=== PATIENT | male | born 1950 | race Caucasian/White ===

== ENCOUNTER → 2018-08-30 07:53 | Outpatient (CLI) | payer OTHER, SELFPAY ==
[2018-08-30 08:38] LABS: Add Manual Diff / Slide Review NO; Basophils Absolute Auto 0 /uL (0-100); Basophils Percent Auto 0.6 % (0-2); Eosinophils Absolute Auto 300 /uL (0-450); Eosinophils Percent Auto 4.5 % (2-4); Hematocrit 41.4 % (41-53); Hemoglobin 14.4 g/dL (13.5-17.5); Lymphocytes Absolute Auto 1600 /uL (1100-4500); Lymphocytes Percent Auto 27.7 % (25-40); Mean Corpuscular HGB Conc 34.9 % (30-36); Mean Corpuscular Hemoglobin 30.9 PG (26-34); Mean Corpuscular Volume 88.5 fL (80-100); Monocytes Absolute Auto 500 /uL (0-900); Monocytes Percent Auto 9.5 % (3-14); Neutrophils Absolute Auto 3300 /uL (1500-7000); Neutrophils Percent Auto 57.7 % (50-75); Platelet Count 213 X10^3/uL (150-400); Red Blood Cell Count 4.67 X10^6/uL (4.5-5.9); Red Cell Distribution Width 13.2 % (11.6-14.8); White Blood Cell Count 5.7 X10^3/uL (4.5-11.0)
[2018-08-30 08:58] LABS: Erythrocyte Sedimentation Rate 3 MM/HR (0-15)
[2018-08-30 09:11] LABS: Alanine Aminotransferase 32 IU/L (21-72); Albumin 4.1 g/dL (3.5-5.0); Albumin Globulin Ratio 1.6 (1.0-2.8); Alkaline Phosphatase 55 U/L (38-126); Aspartate Aminotransferase 29 IU/L (17-59); BUN Creatinine Ratio 13.3 (6-22); Bilirubin Total 0.4 mg/dL (0.2-1.3); Blood Urea Nitrogen 16 mg/dL (9-20); Calcium 8.9 mg/dL (8.4-10.2); Carbon Dioxide 25 mmol/L (22-32); Chloride 104 mmol/L (98-107); Cholesterol 123 mg/dL (140-199); Estimated Glomerular Filt Rate > 60.0 mL/min (>60); Globulin 2.5 g/dL (1.7-4.1); Glucose 104 mg/dL (80-110); HDL Cholesterol 37 mg/dL (40-60); HEMOLYSIS < 15 (0-50); LDL Cholesterol Calculated 71 mg/dL (<100); Potassium 4.3 mmol/L (3.4-5.1); Sodium 138 mmol/L (137-145); Total Protein 6.6 g/dL (6.3-8.2); Triglycerides 76 mg/dL (35-150)
[2018-08-30 09:14] LABS: High Sensitivity CRP - Cardiac 0.4 mg/L (1.0-3.0)
[2018-08-30 09:42] LABS: TSH w/ Reflex to FT4 3.48 uIU/mL (0.47-4.68)
== END ==
PROVIDERS: PCP Internal Medicine; Visit Provider Internal Medicine
DX: I10 Essential (primary) hypertension (principal); I25.10 Atherosclerotic heart disease of native coronary artery without angina pectoris; E78.5 Hyperlipidemia, unspecified
CPT/HCPCS: 36415; 80053; 80061; 84443; 85025; 85651; 86140

== ENCOUNTER → 2020-09-29 07:26 | Outpatient (CLI) | payer MEDICARE, SELFPAY ==
[2020-09-29 08:26] LABS: Alanine Aminotransferase 31 IU/L (<50); Albumin 4.1 g/dL (3.5-5.0); Albumin Globulin Ratio 1.5 (1.0-2.8); Alkaline Phosphatase 56 U/L (38-126); Aspartate Aminotransferase 34 IU/L (17-59); Bilirubin Total 0.3 mg/dL (0.2-1.3); Blood Urea Nitrogen 18 mg/dL (9-20); C-Reactive Protein Quant < 0.5 mg/dL (<1.0); Calcium 9.1 mg/dL (8.4-10.2); Carbon Dioxide 26 mmol/L (22-32); Chloride 105 mmol/L (98-107); Cholesterol 131 mg/dL (140-199); Estimated Glomerular Filt Rate 55.1 mL/min (>60); Globulin 2.8 g/dL (1.7-4.1); Glucose 115 mg/dL (80-110); HDL Cholesterol 39 mg/dL (40-60); HEMOLYSIS < 15 (0-50); LDL Cholesterol Calculated 79 mg/dL (<100); Potassium 4.1 mmol/L (3.4-5.1); Sodium 133 mmol/L (137-145); Total Protein 6.9 g/dL (6.3-8.2); Triglycerides 67 mg/dL (35-150)
[2020-09-29 08:28] LABS: High Sensitivity CRP - Cardiac 0.4 mg/L (1.0-3.0)
[2020-09-29 08:42] LABS: Add Manual Diff / Slide Review NO; Basophils Absolute Auto 100 /uL (0-100); Eosinophils Absolute Auto 300 /uL (0-450); Eosinophils Percent Auto 5.5 % (2-4); Hematocrit 42.9 % (41-53); Hemoglobin 14.7 g/dL (13.5-17.5); Lymphocytes Absolute Auto 1800 /uL (1100-4500); Lymphocytes Percent Auto 31.6 % (25-40); Mean Corpuscular HGB Conc 34.2 % (30-36); Mean Corpuscular Hemoglobin 30.2 PG (26-34); Mean Corpuscular Volume 88.2 fL (80-100); Monocytes Absolute Auto 500 /uL (0-900); Monocytes Percent Auto 8.3 % (3-14); Neutrophils Absolute Auto 3100 /uL (1500-7000); Neutrophils Percent Auto 53.6 % (50-75); Platelet Count 197 X10^3/uL (150-400); Red Blood Cell Count 4.86 X10^6/uL (4.5-5.9); White Blood Cell Count 5.8 X10^3/uL (4.5-11.0)
[2020-09-29 08:54] LABS: TSH w/ Reflex to FT4 5.03 uIU/mL (0.47-4.68)
[2020-09-29 11:24] LABS: Free T4, Direct Thyroxine 0.99 ng/dL (0.78-2.19)
[2020-09-29 16:56] LABS: Creatinine Urine Random 94.8 mg/dL
[2020-09-29 17:04] LABS: Microalbumin Urine Random < 0.6 mg/dL (0-1.6)
== END ==
PROVIDERS: PCP Internal Medicine; Referring Provider Family Medicine; Visit Provider Family Medicine
DX: E66.3 Overweight (principal); E78.5 Hyperlipidemia, unspecified; I10 Essential (primary) hypertension; I25.10 Atherosclerotic heart disease of native coronary artery without angina pectoris; I50.9 Heart failure, unspecified
CPT/HCPCS: 36415; 80053; 80061; 82043; 82570; 84439; 84443; 85025; 86140

== ENCOUNTER → 2020-10-17 09:15 | Outpatient (CLI) | payer MEDICARE, SELFPAY ==
--- NOTE | 2020-10-17 09:16 | DI.RAD.S_ITS ---
PROCEDURE: XR SHOULDER LT MIN 2V INDICATIONS: Left shoulder pain TECHNIQUE: 3 views of the shoulder were acquired. COMPARISON: None. FINDINGS: Bones: No acute fracture. Moderate glenohumeral osteoarthritic change with osteophytosis and joint space narrowing. Mild acromioclavicular degenerative changes. Soft tissues: No suspicious soft tissue calcifications. IMPRESSION: No acute finding. Dictated by: Mario Villar M.D. on 10/17/2020 at 9:35 Approved by: Mario Villar M.D. on 10/17/2020 at 9:43
== END ==
PROVIDERS: PCP Family Medicine; Referring Provider Family Medicine; Visit Provider Family Medicine
DX: M25.512 Pain in left shoulder (principal)
CPT/HCPCS: 73030

== ENCOUNTER 2021-01-27 10:30 | Outpatient (RCR) | payer MEDICARE, SELFPAY ==
--- NOTE | 2020-11-07 16:27 | PT.OIE ---
Current Diagnoses Pain in left shoulder (11/07/20) Past Medical History (Last Reviewed 09/18/20 @ 15:09 by Gokul White MD) Heart failure Low testosterone Overweight (BMI 25.0-29.9) Visit Care Team Role Provider Type Gokul White MD Attending Provider Physician Family Provider Primary Care Provider Referring Provider Specialty: Family Practice Address: [address] [place] [address], [facility] Email: [email or web address] Physical Therapy Initial Evaluation PT-OP-A Visit Information Start: 11/03/20 15:13 Freq: Status: Active Protocol: Document 11/07/20 13:45 MB (Rec: 11/07/20 14:02 MB [id number]) Out-Patient Physical Therapy Visit Information Visit Information Visit Type Initial Evaluation Visit Note Premera BC MCR Pt goes by Bill Visit Start Time 13:45 Visit Stop Time 14:28 Total Visit Minutes 43 Visit Number 1 Evaluation Information Evaluation Date 11/07/20 PT-OP-B Current Condition Start: 11/03/20 15:13 Freq: Status: Active Protocol: Document 11/07/20 13:45 MB (Rec: 11/07/20 14:02 MB [id number]) Current Condition History of Current Condition Onset Date 1 year, history of injury 40 years ago Current Complaints Pain and decreased ROM in left shoulder History of Current Condition Pt reports pain raising his left arm to the side. He hears snapping. He has been inactive through [employer]. He has been working remotely. He was previously very active and hiking. 40 years ago, he was waving his left arm to say goodbye when he slid down the icy steps and hurt the arm. It was and he went to the ED and they reset it. He did not have any PT after that. He had a lot of falling skiing but never had real pain. He is right-handed. If he sleeps with his arm under the pillow, it really hurts. He denies numbness and tingling in his left arm. He has been renovating a rental house and he had to use his arms more to lift. Putting a t-shirt on overhead is difficult and painful. Pt reports 4/10 left shoulder pain with AROM, mostly with abduction. Pt had a [place] and angioplasty and stent in 2000. He had cardiopulmonary rehab at that time. Prior Treatments and Tests Left shoulder x-ray on 10/17/20 was negative for acute findings. It did reveal OA changes, osteophytosis and joint space narrowing, mild AC degenerative changes. Treatment Goals Patient/Caregiver Goals Increase ROM and decrease pain PT-OP-C Subjective Start: 11/03/20 15:13 Freq: Status: Active Protocol: Document 11/07/20 13:45 MB (Rec: 11/07/20 14:02 MB [id number]) OP-PT Subjective Patient Comments Patient Comments See history of current condition Patient Questionnaires Quick Dash- Upper Extremity Quick Dash UE Impairment 1 to 19% Impaired (Score 1-19) PT-OP-J Posture/Palpation/Skin Start: 11/03/20 15:13 Freq: Status: Active Protocol: Document 11/07/20 13:45 MB (Rec: 11/07/20 16:27 MB [id number]) Posture Evaluation Comments Posture Comments Standing posture: increased thoracic kyphosis, Dowager's hump, decreased lumbar lordosis, left shoulder higher than the right, rounded shoulders, left iliac crest higher than the right and right foot externally rotated with possible functional leg length variance. Skin Assessment Other Assessments Skin Assessment Comments Palpation over left coracoid process is hard compared to right PT-OP-K Range of Motion Start: 11/03/20 15:13 Freq: Status: Active Protocol: Document 11/07/20 13:45 MB (Rec: 11/07/20 16:27 MB [id number]) Cervical Spine Range of Motion Cervical Spine Active Testing Position Standing Flexion 40 Extension 30 Rotation Left 50 Rotation Right 60 Shoulder Goniometric Range of Motion Shoulder Left Shoulder ROM WFL No Testing Position Standing Flexion 135 Extension 66 Abduction 92 Internal Rotation Behind Back (text) T11 Comments Supine PROM ER and IR with arm in 90/90: 60 deg, 25 deg Right Shoulder ROM WFL Yes Testing Position Standing Internal Rotation Behind Back (text) T10 PT-OP-M Strength Start: 11/03/20 15:13 Freq: Status: Active Protocol: Document 11/07/20 13:45 MB (Rec: 11/07/20 16:27 MB [id number]) Shoulder Strength Shoulder Manual Muscle Testing Left Comments Deferred MMT d/t painful and reduced AROM Right Flexion 5 Normal Abduction (C5) 5 Normal External Rotation 5 Normal Internal Rotation 5 Normal Elbow/Forearm Strength Elbow and Forearm Manual Muscle Testing Bilateral Flexion (C6) 5 Normal Extension (C7) 5 Normal Pronation 5 Normal Supination 5 Normal Wrist Strength Wrist Manual Muscle Testing Bilateral Flexion (C7) 5 Normal Extension (C6) 5 Normal PT-OP-Q Treatments Start: 11/03/20 15:13 Freq: Status: Active Protocol: Document 11/07/20 13:45 MB (Rec: 11/07/20 16:27 MB [id number]) Self-Care/Home Management Treatment Education Other Education Proper sleeping position with towel roll support at neck, positioning pillows when on right and left sides, log rolling, use of frozen peas, plan to initiate PT for conservative management and possible need for ortho consult and MRI given changes on left shoulder x-ray, limited range and pain PT-OP-T Assessment and Plan Start: 11/03/20 15:13 Freq: Status: Active Protocol: Document 11/07/20 13:45 MB (Rec: 11/07/20 16:27 MB [id number]) Physical Therapy Assessment Rehab Potential Rehabilitation Potential Fair Evaluation Complexity Number of Personal Factors/Comorbidities 1-2 Number of Body Systems Impaired 1-2 Clinical Presentation at Evaluation Evolving Impairments Impairments Activity Tolerance,Balance, Functional Activities, Functional Mobility,Pain, Posture,ROM,Soft Tissue Mobility,Strength Other Impairments Personal factors include changes in left shoulder and pt's recent decreased activity . Body systems affected include musculoskeletal and neuromuscular. His clinical presentation is evolving given degenerative changes in aging . Goals 4 Auto Inspection Specialist Goal (LTG) Pt will perform progressive HEP with I including ROM, postural, strengthening, flexibility, balance and relaxation exercises to improve range, pain and function by 01/08/21. LTG Duration 8 weeks 3 Auto Inspection Specialist Goal (LTG) Pt will present with improved left shoulder flexion and abduction strength to at least 4/5 in available ROM to improve functional strength by 01/08/21. LTG Duration 8 weeks 2 Auto Inspection Specialist Goal (LTG) Pt will present with improved left shoulder AROM to 150 deg flexion and 130 deg abduction to improve functional use of arm by 01/08/21. LTG Duration 8 weeks 1 Longterm Goal (LTG) Pt will report an 85% improvement in left shoulder pain to improve quality of life by 01/08/21. LTG Duration 8 weeks Assessment Summary Assessment Pt is a 70 y/o male presenting with pain and limited range and strength in his left shoulder. He reports that 40 years ago, he had a bad injury falling on icy steps in which he suffered dislocation and had to have his shoulder reduced in the ED. Left shoulder x-ray reveals many changes including OA and osteophytes. PT is concerned that there is anatomical damage that may need to be furthered worked up. He will benefit from PT to initiate postural training for his thoracic and cervical spine, shoulder ROM, manual work and progressive strengthening as tolerates. Will set frequency to 2x/wk for 8 weeks and will refer back to doctor if he does not progress with PT. PT recommends getting an ortho consult and possible MRI set- up. Physical Therapy Plan Frequency and Duration Frequency of Treatment 2x/Week Duration of Treatment 8 weeks Plan of Care Start Date 11/07/20 Plan of Care End Date 01/08/21 Therapeutic Interventions Therapeutic Interventions Balance Training,Canalithic Repositioning,Coordination Training,Gait Training,Home Exercise Program,Joint Mobilizations,Manual Therapy, Neuromuscular Re-education, Patient/Caregiver Education, Self-Care/Home Management, Sensory Integration,Soft Tissue Mobilization,Taping, Therapeutic Activities, Therapeutic Exercises Modalities Cold Pack/Ice Massage,Hot Packs Other Referrals/Consults Referrals/Consults Recommended Ortho consult, left shoulder MRI Next Visit Focus/Plan Next Note Type Treatment Note Next Visit Plan Initiate thoracic mobility, racquet ball STM, AAROM with cane in hook lying
--- NOTE | 2020-11-07 16:27 | PT.OPPOC ---
Physical, Occupational & Speech Therapy At [facility] Current Diagnoses Pain in left shoulder (11/07/20) Visit Care Team Role Provider Type Gokul White MD Attending Provider Physician Family Provider Primary Care Provider Referring Provider Specialty: Family Practice Address: [address] [place] [address], [id number] Email: [email or web address] Plan Of Care PT-OP-T Assessment and Plan Start: 11/03/20 15:13 Freq: Status: Active Protocol: Document 11/07/20 13:45 MB (Rec: 11/07/20 16:27 MB [id number]) Physical Therapy Assessment Rehab Potential Rehabilitation Potential Fair Evaluation Complexity Number of Personal Factors/Comorbidities 1-2 Number of Body Systems Impaired 1-2 Clinical Presentation at Evaluation Evolving Impairments Impairments Activity Tolerance,Balance, Functional Activities, Functional Mobility,Pain, Posture,ROM,Soft Tissue Mobility,Strength Other Impairments Personal factors include changes in left shoulder and pt's recent decreased activity . Body systems affected include musculoskeletal and neuromuscular. His clinical presentation is evolving given degenerative changes in aging . Goals 4 Railroad Hand Goal (LTG) Pt will perform progressive HEP with I including ROM, postural, strengthening, flexibility, balance and relaxation exercises to improve range, pain and function by 01/08/21. LTG Duration 8 weeks 3 Railroad Hand Goal (LTG) Pt will present with improved left shoulder flexion and abduction strength to at least 4/5 in available ROM to improve functional strength by 01/08/21. LTG Duration 8 weeks 2 [facility] Goal (LTG) Pt will present with improved left shoulder AROM to 150 deg flexion and 130 deg abduction to improve functional use of arm by 01/08/21. LTG Duration 8 weeks 1 [facility] Goal (LTG) Pt will report an 85% improvement in left shoulder pain to improve quality of life by 01/08/21. LTG Duration 8 weeks Assessment Summary Assessment Pt is a 70 y/o male presenting with pain and limited range and strength in his left shoulder. He reports that 40 years ago, he had a bad injury falling on icy steps in which he suffered dislocation and had to have his shoulder reduced in the ED. Left shoulder x-ray reveals many changes including OA and osteophytes. PT is concerned that there is anatomical damage that may need to be furthered worked up. He will benefit from PT to initiate postural training for his thoracic and cervical spine, shoulder ROM, manual work and progressive strengthening as tolerates. Will set frequency to 2x/wk for 8 weeks and will refer back to doctor if he does not progress with PT. PT recommends getting an ortho consult and possible MRI set- up. Physical Therapy Plan Frequency and Duration Frequency of Treatment 2x/Week Duration of Treatment 8 weeks Plan of Care Start Date 11/07/20 Plan of Care End Date 01/08/21 Therapeutic Interventions Therapeutic Interventions Balance Training,Canalithic Repositioning,Coordination Training,Gait Training,Home Exercise Program,Joint Mobilizations,Manual Therapy, Neuromuscular Re-education, Patient/Caregiver Education, Self-Care/Home Management, Sensory Integration,Soft Tissue Mobilization,Taping, Therapeutic Activities, Therapeutic Exercises Modalities Cold Pack/Ice Massage,Hot Packs Other Referrals/Consults Referrals/Consults Recommended Ortho consult, left shoulder MRI Next Visit Focus/Plan Next Note Type Treatment Note Next Visit Plan Initiate thoracic mobility, racquet ball STM, AAROM with cane in hook lying Plan of Care Dates Plan of Care Start Date 11/07/20 Plan of Care End Date 01/08/21 Electronically Signed by: Hallie Duarte PT 11/07/20 [id number] Please Sign and Return: I have reviewed this Plan of Care and certify that the skilled therapy services above are required to meet the patient?s needs. Physician Signature Date Printed Name and Credentials Clinical Instructor Signature Printed Name and Credentials
--- NOTE | 2020-11-11 12:56 | PT.OTN ---
Current Diagnoses Pain in left shoulder (11/11/20) Physical Therapy Treatment Note PT-OP-A Visit Information Start: 11/03/20 15:13 Freq: Status: Active Protocol: Document 11/11/20 12:16 MB (Rec: 11/11/20 12:53 MB [id number]) Out-Patient Physical Therapy Visit Information Visit Information Visit Type Treatment Note Visit Note [facility] Pt goes by Bill Visit Start Time 12:16 Visit Stop Time 13:56 Total Visit Minutes 40 Visit Number 2 PT-OP-B Current Condition Start: 11/03/20 15:13 Freq: Status: Active Protocol: Document 11/07/20 13:45 MB (Rec: 11/07/20 14:02 MB [id number]) Current Condition History of Current Condition Onset Date 1 year, history of injury 40 years ago Current Complaints Pain and decreased ROM in left shoulder History of Current Condition Pt reports pain raising his left arm to the side. He hears snapping. He has been inactive through [employer]. He has been working remotely. He was previously very active and hiking. 40 years ago, he was waving his left arm to say goodbye when he slid down the icy steps and hurt the arm. It was and he went to the ED and they reset it. He did not have any PT after that. He had a lot of falling skiing but never had real pain. He is right-handed. If he sleeps with his arm under the pillow, it really hurts. He denies numbness and tingling in his left arm. He has been renovating a rental house and he had to use his arms more to lift. Putting a t-shirt on overhead is difficult and painful. Pt reports 4/10 left shoulder pain with AROM, mostly with abduction. Pt had a [place] and angioplasty and stent in 2000. He had cardiopulmonary rehab at that time. Prior Treatments and Tests Left shoulder x-ray on 10/17/20 was negative for acute findings. It did reveal OA changes, osteophytosis and joint space narrowing, mild AC degenerative changes. Treatment Goals Patient/Caregiver Goals Increase ROM and decrease pain PT-OP-C Subjective Start: 11/03/20 15:13 Freq: Status: Active Protocol: Document 11/11/20 12:16 MB (Rec: 11/11/20 12:53 MB [id number]) OP-PT Subjective Patient Comments Patient Comments Pt states that he has trouble with the sleeping position and will keep working on it. 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 PT-OP-J Posture/Palpation/Skin Start: 11/03/20 15:13 Freq: Status: Active Protocol: Document 11/07/20 13:45 MB (Rec: 11/07/20 16:27 MB [id number]) Posture Evaluation Comments Posture Comments Standing posture: increased thoracic kyphosis, Dowager's hump, decreased lumbar lordosis, left shoulder higher than the right, rounded shoulders, left iliac crest higher than the right and right foot externally rotated with possible functional leg length variance. Skin Assessment Other Assessments Skin Assessment Comments Palpation over left coracoid process is hard compared to right PT-OP-K Range of Motion Start: 11/03/20 15:13 Freq: Status: Active Protocol: Document 11/07/20 13:45 MB (Rec: 11/07/20 16:27 MB [id number]) Cervical Spine Range of Motion Cervical Spine Active Testing Position Standing Flexion 40 Extension 30 Rotation Left 50 Rotation Right 60 Shoulder Goniometric Range of Motion Shoulder Left Shoulder ROM WFL No Testing Position Standing Flexion 135 Extension 66 Abduction 92 Internal Rotation Behind Back (text) T11 Comments Supine PROM ER and IR with arm in 90/90: 60 deg, 25 deg Right Shoulder ROM WFL Yes Testing Position Standing Internal Rotation Behind Back (text) T10 PT-OP-M Strength Start: 11/03/20 15:13 Freq: Status: Active Protocol: Document 11/07/20 13:45 MB (Rec: 11/07/20 16:27 MB [id number]) Shoulder Strength Shoulder Manual Muscle Testing Left Comments Deferred MMT d/t painful and reduced AROM Right Flexion 5 Normal Abduction (C5) 5 Normal External Rotation 5 Normal Internal Rotation 5 Normal Elbow/Forearm Strength Elbow and Forearm Manual Muscle Testing Bilateral Flexion (C6) 5 Normal Extension (C7) 5 Normal Pronation 5 Normal Supination 5 Normal Wrist Strength Wrist Manual Muscle Testing Bilateral Flexion (C7) 5 Normal Extension (C6) 5 Normal PT-OP-Q Treatments Start: 11/03/20 15:13 Freq: Status: Active Protocol: Document 11/11/20 12:16 MB (Rec: 11/11/20 12:53 MB [id number]) Therapeutic Exercises Supine Exercises Cane AROM Supine Exercise Name For left shoulder, using right arm support Side bilateral Equipment Used Cane Comments Flexion and abduction x10 reps Sidelying Exercises Open book with elbows bent and rib breathing Side bilateral Comments Pillow under head, hands behind head, breathing through nose moving ribs Standing Exercises Racquet ball STM Standing Exercise Name STM intrascapular muscles, MWM upper traps and infraspinatus Side bilateral Comments PT ed and pt performs PT-OP-T Assessment and Plan Start: 11/03/20 15:13 Freq: Status: Active Protocol: Document 11/11/20 12:16 MB (Rec: 11/11/20 12:53 MB [id number]) Physical Therapy Assessment Rehab Potential Rehabilitation Potential Fair Evaluation Complexity Number of Personal Factors/Comorbidities 1-2 Number of Body Systems Impaired 1-2 Clinical Presentation at Evaluation Evolving Impairments Impairments Activity Tolerance,Balance, Functional Activities, Functional Mobility,Pain, Posture,ROM,Soft Tissue Mobility,Strength Other Impairments Personal factors include changes in left shoulder and pt's recent decreased activity . Body systems affected include musculoskeletal and neuromuscular. His clinical presentation is evolving given degenerative changes in aging . Goals 4 Shelter Goal (LTG) Pt will perform progressive HEP with I including ROM, postural, strengthening, flexibility, balance and relaxation exercises to improve range, pain and function by 01/08/21. LTG Duration 8 weeks 3 Jewelry Finisher Goal (LTG) Pt will present with improved left shoulder flexion and abduction strength to at least 4/5 in available ROM to improve functional strength by 01/08/21. LTG Duration 8 weeks 2 Jewelry Finisher Goal (LTG) Pt will present with improved left shoulder AROM to 150 deg flexion and 130 deg abduction to improve functional use of arm by 01/08/21. LTG Duration 8 weeks 1 Jewelry Finisher Goal (LTG) Pt will report an 85% improvement in left shoulder pain to improve quality of life by 01/08/21. LTG Duration 8 weeks Assessment Summary Assessment Initiated thoracic mobility and cane exercises today as well as racquet ball massage. Con't progression in hook lying. Physical Therapy Plan Frequency and Duration Frequency of Treatment 2x/Week Duration of Treatment 8 weeks Plan of Care Start Date 11/07/20 Plan of Care End Date 01/08/21 Therapeutic Interventions Therapeutic Interventions Balance Training,Canalithic Repositioning,Coordination Training,Gait Training,Home Exercise Program,Joint Mobilizations,Manual Therapy, Neuromuscular Re-education, Patient/Caregiver Education, Self-Care/Home Management, Sensory Integration,Soft Tissue Mobilization,Taping, Therapeutic Activities, Therapeutic Exercises Modalities Cold Pack/Ice Massage,Hot Packs Other Referrals/Consults Referrals/Consults Recommended Ortho consult, left shoulder MRI Next Visit Focus/Plan Next Note Type Treatment Note Next Visit Plan Initiate [facility] Protocol mobilizations to tolerance, assessing needs; progress thoracic mobility and shoulder strengthening over pool noodle, monitoring responses
--- NOTE | 2020-11-14 15:33 | PT.OTN ---
Current Diagnoses Pain in left shoulder (11/14/20) Physical Therapy Treatment Note PT-OP-A Visit Information Start: 11/03/20 15:13 Freq: Status: Active Protocol: Document 11/14/20 13:51 MB (Rec: 11/14/20 14:33 MB [id number]) Out-Patient Physical Therapy Visit Information Visit Information Visit Type Treatment Note Visit Note [facility] Visit Start Time 13:51 Visit Stop Time 14:30 Total Visit Minutes 39 Visit Number 3 PT-OP-B Current Condition Start: 11/03/20 15:13 Freq: Status: Active Protocol: Document 11/07/20 13:45 MB (Rec: 11/07/20 14:02 MB [id number]) Current Condition History of Current Condition Onset Date 1 year, history of injury 40 years ago Current Complaints Pain and decreased ROM in left shoulder History of Current Condition Pt reports pain raising his left arm to the side. He hears snapping. He has been inactive through [employer]. He has been working remotely. He was previously very active and hiking. 40 years ago, he was waving his left arm to say goodbye when he slid down the icy steps and hurt the arm. It was and he went to the ED and they reset it. He did not have any PT after that. He had a lot of falling skiing but never had real pain. He is right-handed. If he sleeps with his arm under the pillow, it really hurts. He denies numbness and tingling in his left arm. He has been renovating a rental house and he had to use his arms more to lift. Putting a t-shirt on overhead is difficult and painful. Pt reports 4/10 left shoulder pain with AROM, mostly with abduction. Pt had a [place] and angioplasty and stent in 2000. He had cardiopulmonary rehab at that time. Prior Treatments and Tests Left shoulder x-ray on 10/17/20 was negative for acute findings. It did reveal OA changes, osteophytosis and joint space narrowing, mild AC degenerative changes. Treatment Goals Patient/Caregiver Goals Increase ROM and decrease pain PT-OP-C Subjective Start: 11/03/20 15:13 Freq: Status: Active Protocol: Document 11/14/20 13:51 MB (Rec: 11/14/20 14:33 MB [id number]) OP-PT Subjective Patient Comments Patient Comments Pt states that his arm is feeling better though he is not doing anything. He wonders what the crunch crunch crunch is. PT-OP-J Posture/Palpation/Skin Start: 11/03/20 15:13 Freq: Status: Active Protocol: Document 11/07/20 13:45 MB (Rec: 11/07/20 16:27 MB [id number]) Posture Evaluation Comments Posture Comments Standing posture: increased thoracic kyphosis, Dowager's hump, decreased lumbar lordosis, left shoulder higher than the right, rounded shoulders, left iliac crest higher than the right and right foot externally rotated with possible functional leg length variance. Skin Assessment Other Assessments Skin Assessment Comments Palpation over left coracoid process is hard compared to right PT-OP-K Range of Motion Start: 11/03/20 15:13 Freq: Status: Active Protocol: Document 11/07/20 13:45 MB (Rec: 11/07/20 16:27 MB [id number]) Cervical Spine Range of Motion Cervical Spine Active Testing Position Standing Flexion 40 Extension 30 Rotation Left 50 Rotation Right 60 Shoulder Goniometric Range of Motion Shoulder Left Shoulder ROM WFL No Testing Position Standing Flexion 135 Extension 66 Abduction 92 Internal Rotation Behind Back (text) T11 Comments Supine PROM ER and IR with arm in 90/90: 60 deg, 25 deg Right Shoulder ROM WFL Yes Testing Position Standing Internal Rotation Behind Back (text) T10 PT-OP-M Strength Start: 11/03/20 15:13 Freq: Status: Active Protocol: Document 11/07/20 13:45 MB (Rec: 11/07/20 16:27 MB [id number]) Shoulder Strength Shoulder Manual Muscle Testing Left Comments Deferred MMT d/t painful and reduced AROM Right Flexion 5 Normal Abduction (C5) 5 Normal External Rotation 5 Normal Internal Rotation 5 Normal Elbow/Forearm Strength Elbow and Forearm Manual Muscle Testing Bilateral Flexion (C6) 5 Normal Extension (C7) 5 Normal Pronation 5 Normal Supination 5 Normal Wrist Strength Wrist Manual Muscle Testing Bilateral Flexion (C7) 5 Normal Extension (C6) 5 Normal PT-OP-Q Treatments Start: 11/03/20 15:13 Freq: Status: Active Protocol: Document 11/14/20 13:51 MB (Rec: 11/14/20 15:31 MB [id number]) Manual Therapy Treatment Other Other Manual Treatments Left shoulder [place] Protocol and mobs at joint line grade II-III with shoulder in ER and IR in prone (PA mobs) and in ER in supine with AP mobs and pt responds well to treatment, posterior capsule stretch and mobs PT-OP-T Assessment and Plan Start: 11/03/20 15:13 Freq: Status: Active Protocol: Document 11/14/20 13:51 MB (Rec: 11/14/20 14:33 MB [id number]) Physical Therapy Assessment Rehab Potential Rehabilitation Potential Fair Evaluation Complexity Number of Personal Factors/Comorbidities 1-2 Number of Body Systems Impaired 1-2 Clinical Presentation at Evaluation Evolving Impairments Impairments Activity Tolerance,Balance, Functional Activities, Functional Mobility,Pain, Posture,ROM,Soft Tissue Mobility,Strength Other Impairments Personal factors include changes in left shoulder and pt's recent decreased activity . Body systems affected include musculoskeletal and neuromuscular. His clinical presentation is evolving given degenerative changes in aging . Goals 4 Char Dust Cleaner And Salvager Goal (LTG) Pt will perform progressive HEP with I including ROM, postural, strengthening, flexibility, balance and relaxation exercises to improve range, pain and function by 01/08/21. LTG Duration 8 weeks 3 Char Dust Cleaner And Salvager Goal (LTG) Pt will present with improved left shoulder flexion and abduction strength to at least 4/5 in available ROM to improve functional strength by 01/08/21. LTG Duration 8 weeks 2 Char Dust Cleaner And Salvager Goal (LTG) Pt will present with improved left shoulder AROM to 150 deg flexion and 130 deg abduction to improve functional use of arm by 01/08/21. LTG Duration 8 weeks 1 Char Dust Cleaner And Salvager Goal (LTG) Pt will report an 85% improvement in left shoulder pain to improve quality of life by 01/08/21. LTG Duration 8 weeks Assessment Summary Assessment Pt reports that his left shoulder feels better after manual work today. Will con't this and progress exercises in future treatments. Physical Therapy Plan Frequency and Duration Frequency of Treatment 2x/Week Duration of Treatment 8 weeks Plan of Care Start Date 11/07/20 Plan of Care End Date 01/08/21 Therapeutic Interventions Therapeutic Interventions Balance Training,Canalithic Repositioning,Coordination Training,Gait Training,Home Exercise Program,Joint Mobilizations,Manual Therapy, Neuromuscular Re-education, Patient/Caregiver Education, Self-Care/Home Management, Sensory Integration,Soft Tissue Mobilization,Taping, Therapeutic Activities, Therapeutic Exercises Modalities Cold Pack/Ice Massage,Hot Packs Other Referrals/Consults Referrals/Consults Recommended Ortho consult, left shoulder MRI Next Visit Focus/Plan Next Note Type Treatment Note Next Visit Plan [place] Protocol, progress thoracic mobility and shoulder strengthening over pool noodle
--- NOTE | 2020-11-19 15:18 | PT.OTN ---
Current Diagnoses Pain in left shoulder (11/19/20) Physical Therapy Treatment Note PT-OP-A Visit Information Start: 11/03/20 15:13 Freq: Status: Active Protocol: Document 11/19/20 13:01 (Rec: 11/19/20 15:17 [id number]) Out-Patient Physical Therapy Visit Information Visit Information Visit Type Treatment Note Visit Note [facility] Visit Start Time 13:04 Visit Stop Time 13:45 Total Visit Minutes 41 Visit Number 4 PT-OP-B Current Condition Start: 11/03/20 15:13 Freq: Status: Active Protocol: Document 11/07/20 13:45 MB (Rec: 11/07/20 14:02 MB [id number]) Current Condition History of Current Condition Onset Date 1 year, history of injury 40 years ago Current Complaints Pain and decreased ROM in left shoulder History of Current Condition Pt reports pain raising his left arm to the side. He hears snapping. He has been inactive through [employer]. He has been working remotely. He was previously very active and hiking. 40 years ago, he was waving his left arm to say goodbye when he slid down the icy steps and hurt the arm. It was and he went to the ED and they reset it. He did not have any PT after that. He had a lot of falling skiing but never had real pain. He is right-handed. If he sleeps with his arm under the pillow, it really hurts. He denies numbness and tingling in his left arm. He has been renovating a rental house and he had to use his arms more to lift. Putting a t-shirt on overhead is difficult and painful. Pt reports 4/10 left shoulder pain with AROM, mostly with abduction. Pt had a [place] and angioplasty and stent in 2000. He had cardiopulmonary rehab at that time. Prior Treatments and Tests Left shoulder x-ray on 10/17/20 was negative for acute findings. It did reveal OA changes, osteophytosis and joint space narrowing, mild AC degenerative changes. Treatment Goals Patient/Caregiver Goals Increase ROM and decrease pain PT-OP-C Subjective Start: 11/03/20 15:13 Freq: Status: Active Protocol: Document 11/19/20 13:01 HH (Rec: 11/19/20 15:17 [id number]) OP-PT Subjective Patient Comments Patient Comments I could reach overhead now with abduction and less pain. Patient Reported Progress Improving PT-OP-J Posture/Palpation/Skin Start: 11/03/20 15:13 Freq: Status: Active Protocol: Document 11/07/20 13:45 MB (Rec: 11/07/20 16:27 MB [id number]) Posture Evaluation Comments Posture Comments Standing posture: increased thoracic kyphosis, Dowager's hump, decreased lumbar lordosis, left shoulder higher than the right, rounded shoulders, left iliac crest higher than the right and right foot externally rotated with possible functional leg length variance. Skin Assessment Other Assessments Skin Assessment Comments Palpation over left coracoid process is hard compared to right PT-OP-K Range of Motion Start: 11/03/20 15:13 Freq: Status: Active Protocol: Document 11/07/20 13:45 MB (Rec: 11/07/20 16:27 MB [id number]) Cervical Spine Range of Motion Cervical Spine Active Testing Position Standing Flexion 40 Extension 30 Rotation Left 50 Rotation Right 60 Shoulder Goniometric Range of Motion Shoulder Left Shoulder ROM WFL No Testing Position Standing Flexion 135 Extension 66 Abduction 92 Internal Rotation Behind Back (text) T11 Comments Supine PROM ER and IR with arm in 90/90: 60 deg, 25 deg Right Shoulder ROM WFL Yes Testing Position Standing Internal Rotation Behind Back (text) T10 PT-OP-M Strength Start: 11/03/20 15:13 Freq: Status: Active Protocol: Document 11/07/20 13:45 MB (Rec: 11/07/20 16:27 MB [id number]) Shoulder Strength Shoulder Manual Muscle Testing Left Comments Deferred MMT d/t painful and reduced AROM Right Flexion 5 Normal Abduction (C5) 5 Normal External Rotation 5 Normal Internal Rotation 5 Normal Elbow/Forearm Strength Elbow and Forearm Manual Muscle Testing Bilateral Flexion (C6) 5 Normal Extension (C7) 5 Normal Pronation 5 Normal Supination 5 Normal Wrist Strength Wrist Manual Muscle Testing Bilateral Flexion (C7) 5 Normal Extension (C6) 5 Normal PT-OP-Q Treatments Start: 11/03/20 15:13 Freq: Status: Active Protocol: Document 11/19/20 13:01 HH (Rec: 11/19/20 15:17 [id number]) Therapeutic Exercises Supine Exercises Cane AROM Supine Exercise Name For left shoulder, using right arm support Side bilateral Equipment Used Cane Comments Flexion and abduction x10 reps Sidelying Exercises Open book with elbows bent and rib breathing Side bilateral Comments Pillow under head, hands behind head, breathing through nose moving ribs Sitting Exercises overhead shirin Sitting Exercise Name flexion, abduction Side left Comments pt able to reach close to full range but slowly Standing Exercises scap retraction Standing Exercise Name postural correction Side bilateral Comments for HEP Racquet ball STM Standing Exercise Name STM intrascapular muscles, MWM upper traps and infraspinatus Side bilateral Comments review with pt today to place the ball lower. Manual Therapy Treatment Soft Tissue Mobilization RTC Body Location teres minor and major Mobilization Type Myofascial Release,Sustained Pressure,Trigger Point Release Intensity/Depth Moderate Body Position Sidelying Comments significant tenderness noted with radiating pain to front of the shoulder pecs Mobilization Type Myofascial Release Intensity/Depth Moderate Body Position Supine Joint Mobilizations L GHJ Direction inferior, posterior and anterior Grade III Body Position Supine PT-OP-T Assessment and Plan Start: 11/03/20 15:13 Freq: Status: Active Protocol: Document 11/19/20 13:01 (Rec: 11/19/20 15:17 [id number]) Physical Therapy Assessment Goals 4 Ends Breakage Clerk Goal (LTG) Pt will perform progressive HEP with I including ROM, postural, strengthening, flexibility, balance and relaxation exercises to improve range, pain and function by 01/08/21. LTG Duration 8 weeks 3 Ends Breakage Clerk Goal (LTG) Pt will present with improved left shoulder flexion and abduction strength to at least 4/5 in available ROM to improve functional strength by 01/08/21. LTG Duration 8 weeks 2 Ends Breakage Clerk Goal (LTG) Pt will present with improved left shoulder AROM to 150 deg flexion and 130 deg abduction to improve functional use of arm by 01/08/21. LTG Duration 8 weeks 1 Ends Breakage Clerk Goal (LTG) Pt will report an 85% improvement in left shoulder pain to improve quality of life by 01/08/21. LTG Duration 8 weeks Assessment Summary Assessment pt shows good progress with improved pain and active abduction. Pt does have lots of crepitis especially during ER. Spent time educated pt on using overhead shirin for AAROM, and postural correction to reduce pressure at anterior GHJ. Physical Therapy Plan Frequency and Duration Frequency of Treatment 2x/Week Duration of Treatment 8 weeks Plan of Care Start Date 11/07/20 Plan of Care End Date 01/08/21 Therapeutic Interventions Therapeutic Interventions Balance Training,Canalithic Repositioning,Coordination Training,Gait Training,Home Exercise Program,Joint Mobilizations,Manual Therapy, Neuromuscular Re-education, Patient/Caregiver Education, Self-Care/Home Management, Sensory Integration,Soft Tissue Mobilization,Taping, Therapeutic Activities, Therapeutic Exercises Modalities Cold Pack/Ice Massage,Hot Packs Other Referrals/Consults Referrals/Consults Recommended Ortho consult, left shoulder MRI Next Visit Focus/Plan Next Note Type Treatment Note Next Visit Plan [place] Protocol, progress thoracic mobility and shoulder strengthening over pool noodle
--- NOTE | 2020-11-24 15:10 | PT.OTN ---
Current Diagnoses Pain in left shoulder (11/24/20) Physical Therapy Treatment Note PT-OP-A Visit Information Start: 11/03/20 15:13 Freq: Status: Active Protocol: Document 11/24/20 14:32 MB (Rec: 11/24/20 15:01 MB [id number]) Out-Patient Physical Therapy Visit Information Visit Information Visit Type Treatment Note Visit Note [facility] Visit Start Time 14:32 Visit Stop Time 15:10 Total Visit Minutes 38 Visit Number 5 PT-OP-B Current Condition Start: 11/03/20 15:13 Freq: Status: Active Protocol: Document 11/07/20 13:45 MB (Rec: 11/07/20 14:02 MB [id number]) Current Condition History of Current Condition Onset Date 1 year, history of injury 40 years ago Current Complaints Pain and decreased ROM in left shoulder History of Current Condition Pt reports pain raising his left arm to the side. He hears snapping. He has been inactive through [employer]. He has been working remotely. He was previously very active and hiking. 40 years ago, he was waving his left arm to say goodbye when he slid down the icy steps and hurt the arm. It was and he went to the ED and they reset it. He did not have any PT after that. He had a lot of falling skiing but never had real pain. He is right-handed. If he sleeps with his arm under the pillow, it really hurts. He denies numbness and tingling in his left arm. He has been renovating a rental house and he had to use his arms more to lift. Putting a t-shirt on overhead is difficult and painful. Pt reports 4/10 left shoulder pain with AROM, mostly with abduction. Pt had a [place] and angioplasty and stent in 2000. He had cardiopulmonary rehab at that time. Prior Treatments and Tests Left shoulder x-ray on 10/17/20 was negative for acute findings. It did reveal OA changes, osteophytosis and joint space narrowing, mild AC degenerative changes. Treatment Goals Patient/Caregiver Goals Increase ROM and decrease pain PT-OP-C Subjective Start: 11/03/20 15:13 Freq: Status: Active Protocol: Document 11/24/20 14:32 MB (Rec: 11/24/20 15:01 MB [id number]) OP-PT Subjective Patient Comments Patient Comments Pt states that the shirin works well. PT-OP-J Posture/Palpation/Skin Start: 11/03/20 15:13 Freq: Status: Active Protocol: Document 11/07/20 13:45 MB (Rec: 11/07/20 16:27 MB [id number]) Posture Evaluation Comments Posture Comments Standing posture: increased thoracic kyphosis, Dowager's hump, decreased lumbar lordosis, left shoulder higher than the right, rounded shoulders, left iliac crest higher than the right and right foot externally rotated with possible functional leg length variance. Skin Assessment Other Assessments Skin Assessment Comments Palpation over left coracoid process is hard compared to right PT-OP-K Range of Motion Start: 11/03/20 15:13 Freq: Status: Active Protocol: Document 11/07/20 13:45 MB (Rec: 11/07/20 16:27 MB [id number]) Cervical Spine Range of Motion Cervical Spine Active Testing Position Standing Flexion 40 Extension 30 Rotation Left 50 Rotation Right 60 Shoulder Goniometric Range of Motion Shoulder Left Shoulder ROM WFL No Testing Position Standing Flexion 135 Extension 66 Abduction 92 Internal Rotation Behind Back (text) T11 Comments Supine PROM ER and IR with arm in 90/90: 60 deg, 25 deg Right Shoulder ROM WFL Yes Testing Position Standing Internal Rotation Behind Back (text) T10 PT-OP-M Strength Start: 11/03/20 15:13 Freq: Status: Active Protocol: Document 11/07/20 13:45 MB (Rec: 11/07/20 16:27 MB [id number]) Shoulder Strength Shoulder Manual Muscle Testing Left Comments Deferred MMT d/t painful and reduced AROM Right Flexion 5 Normal Abduction (C5) 5 Normal External Rotation 5 Normal Internal Rotation 5 Normal Elbow/Forearm Strength Elbow and Forearm Manual Muscle Testing Bilateral Flexion (C6) 5 Normal Extension (C7) 5 Normal Pronation 5 Normal Supination 5 Normal Wrist Strength Wrist Manual Muscle Testing Bilateral Flexion (C7) 5 Normal Extension (C6) 5 Normal PT-OP-Q Treatments Start: 11/03/20 15:13 Freq: Status: Active Protocol: Document 11/24/20 14:32 MB (Rec: 11/24/20 15:01 MB [id number]) Cardio Equipment Upper Body Ergometer (UBE) Duration (Minutes) 10 Other 1' forward and 1' backwards Manual Therapy Treatment Other Other Manual Treatments Left shoulder [place] Protocol, joint mobs grade III -IV with left shoulder in ER and IR in prone (PA mobs) and Ap mobs with left shoulder in ER in supine. MWM left pects with PT performing TrP pressure and pt performing AAROM left shoulder ER at the same time. PT-OP-T Assessment and Plan Start: 11/03/20 15:13 Freq: Status: Active Protocol: Document 11/24/20 14:32 MB (Rec: 11/24/20 15:01 MB [id number]) Physical Therapy Assessment Rehab Potential Rehabilitation Potential Fair Evaluation Complexity Number of Personal Factors/Comorbidities 1-2 Number of Body Systems Impaired 1-2 Clinical Presentation at Evaluation Evolving Impairments Impairments Activity Tolerance,Balance, Functional Activities, Functional Mobility,Pain, Posture,ROM,Soft Tissue Mobility,Strength Other Impairments Personal factors include changes in left shoulder and pt's recent decreased activity . Body systems affected include musculoskeletal and neuromuscular. His clinical presentation is evolving given degenerative changes in aging . Goals 4 Residential Goal (LTG) Pt will perform progressive HEP with I including ROM, postural, strengthening, flexibility, balance and relaxation exercises to improve range, pain and function by 01/08/21. LTG Duration 8 weeks 3 Respite Care Provider Goal (LTG) Pt will present with improved left shoulder flexion and abduction strength to at least 4/5 in available ROM to improve functional strength by 01/08/21. LTG Duration 8 weeks 2 Respite Care Provider Goal (LTG) Pt will present with improved left shoulder AROM to 150 deg flexion and 130 deg abduction to improve functional use of arm by 01/08/21. LTG Duration 8 weeks 1 Respite Care Provider Goal (LTG) Pt will report an 85% improvement in left shoulder pain to improve quality of life by 01/08/21. LTG Duration 8 weeks Assessment Summary Assessment Pt likes the shirin. He has not been performing open book or other range/rib mobility exercises and will get back to them. AROM left shoulder flexion and abduction is 90% of right in standing after [place] today and will con't . Progressed strengthening via the upright bike which is a safe closed pack exercise to initiate strengthening. Progress pect stretching with thoracic extension over pool noodle in future treatments. Physical Therapy Plan Frequency and Duration Frequency of Treatment 2x/Week Duration of Treatment 8 weeks Plan of Care Start Date 11/07/20 Plan of Care End Date 01/08/21 Therapeutic Interventions Therapeutic Interventions Balance Training,Canalithic Repositioning,Coordination Training,Gait Training,Home Exercise Program,Joint Mobilizations,Manual Therapy, Neuromuscular Re-education, Patient/Caregiver Education, Self-Care/Home Management, Sensory Integration,Soft Tissue Mobilization,Taping, Therapeutic Activities, Therapeutic Exercises Modalities Cold Pack/Ice Massage,Hot Packs Other Referrals/Consults Referrals/Consults Recommended Ortho consult, left shoulder MRI Next Visit Focus/Plan Next Note Type Treatment Note Next Visit Plan [place] Protocol, progress pect stretch, thoracic mobility and shoulder strengthening lying vertically over pool noodle or progress as secondary PT, [place], feels appropriate (he will see pt next two visits)
--- NOTE | 2020-11-28 10:32 | PT.OTN ---
Current Diagnoses Pain in left shoulder (11/28/20) Physical Therapy Treatment Note PT-OP-A Visit Information Start: 11/03/20 15:13 Freq: Status: Active Protocol: Document 11/28/20 09:48 HH (Rec: 11/28/20 10:31 HH [id number]) Out-Patient Physical Therapy Visit Information Visit Information Visit Type Treatment Note Visit Note Premera BC MCR 10/25 before KX modifier Visit Start Time 09:48 Visit Stop Time 10:30 Total Visit Minutes 42 Visit Number 6 PT-OP-B Current Condition Start: 11/03/20 15:13 Freq: Status: Active Protocol: Document 11/07/20 13:45 MB (Rec: 11/07/20 14:02 MB [id number]) Current Condition History of Current Condition Onset Date 1 year, history of injury 40 years ago Current Complaints Pain and decreased ROM in left shoulder History of Current Condition Pt reports pain raising his left arm to the side. He hears snapping. He has been inactive through [employer]. He has been working remotely. He was previously very active and hiking. 40 years ago, he was waving his left arm to say goodbye when he slid down the icy steps and hurt the arm. It was and he went to the ED and they reset it. He did not have any PT after that. He had a lot of falling skiing but never had real pain. He is right-handed. If he sleeps with his arm under the pillow, it really hurts. He denies numbness and tingling in his left arm. He has been renovating a rental house and he had to use his arms more to lift. Putting a t-shirt on overhead is difficult and painful. Pt reports 4/10 left shoulder pain with AROM, mostly with abduction. Pt had a OK and angioplasty and stent in 2000. He had cardiopulmonary rehab at that time. Prior Treatments and Tests Left shoulder x-ray on 10/17/20 was negative for acute findings. It did reveal OA changes, osteophytosis and joint space narrowing, mild AC degenerative changes. Treatment Goals Patient/Caregiver Goals Increase ROM and decrease pain PT-OP-C Subjective Start: 11/03/20 15:13 Freq: Status: Active Protocol: Document 11/28/20 09:48 HH (Rec: 11/28/20 10:31 [id number]) OP-PT Subjective Patient Comments Patient Comments I felt a lot easier to a bduct my arm without hurting too much. Patient Reported Progress Improving PT-OP-J Posture/Palpation/Skin Start: 11/03/20 15:13 Freq: Status: Active Protocol: Document 11/07/20 13:45 MB (Rec: 11/07/20 16:27 MB [id number]) Posture Evaluation Comments Posture Comments Standing posture: increased thoracic kyphosis, Dowager's hump, decreased lumbar lordosis, left shoulder higher than the right, rounded shoulders, left iliac crest higher than the right and right foot externally rotated with possible functional leg length variance. Skin Assessment Other Assessments Skin Assessment Comments Palpation over left coracoid process is hard compared to right PT-OP-K Range of Motion Start: 11/03/20 15:13 Freq: Status: Active Protocol: Document 11/07/20 13:45 MB (Rec: 11/07/20 16:27 MB [id number]) Cervical Spine Range of Motion Cervical Spine Active Testing Position Standing Flexion 40 Extension 30 Rotation Left 50 Rotation Right 60 Shoulder Goniometric Range of Motion Shoulder Left Shoulder ROM WFL No Testing Position Standing Flexion 135 Extension 66 Abduction 92 Internal Rotation Behind Back (text) T11 Comments Supine PROM ER and IR with arm in 90/90: 60 deg, 25 deg Right Shoulder ROM WFL Yes Testing Position Standing Internal Rotation Behind Back (text) T10 PT-OP-M Strength Start: 11/03/20 15:13 Freq: Status: Active Protocol: Document 11/07/20 13:45 MB (Rec: 11/07/20 16:27 MB [id number]) Shoulder Strength Shoulder Manual Muscle Testing Left Comments Deferred MMT d/t painful and reduced AROM Right Flexion 5 Normal Abduction (C5) 5 Normal External Rotation 5 Normal Internal Rotation 5 Normal Elbow/Forearm Strength Elbow and Forearm Manual Muscle Testing Bilateral Flexion (C6) 5 Normal Extension (C7) 5 Normal Pronation 5 Normal Supination 5 Normal Wrist Strength Wrist Manual Muscle Testing Bilateral Flexion (C7) 5 Normal Extension (C6) 5 Normal PT-OP-Q Treatments Start: 11/03/20 15:13 Freq: Status: Active Protocol: Document 11/28/20 09:48 HH (Rec: 11/28/20 10:31 HH [id number]) Therapeutic Exercises Sidelying Exercises Open book with elbows bent and rib breathing Side bilateral Comments Pillow under head, hands behind head, breathing through nose moving ribs Sitting Exercises overhead shirin Sitting Exercise Name flexion, abduction Side left Reps/Minutes 6 mins Comments pt able to reach close to full range but slowly Standing Exercises shoulder ER Side left Reps/Minutes 2 mins Comments cues on preventing trunk rotation Manual Therapy Treatment Soft Tissue Mobilization RTC Body Location teres minor and major Mobilization Type Myofascial Release,Sustained Pressure,Trigger Point Release Intensity/Depth Moderate Body Position Sidelying Comments significant tenderness noted with radiating pain to front of the shoulder pecs Mobilization Type Myofascial Release Intensity/Depth Moderate Body Position Supine Joint Mobilizations L GHJ Direction inferior, posterior and anterior Grade III Body Position Supine PT-OP-T Assessment and Plan Start: 11/03/20 15:13 Freq: Status: Active Protocol: Document 11/28/20 09:48 (Rec: 11/28/20 10:31 [id number]) Physical Therapy Assessment Goals 4 Sales Support Administrator Goal (LTG) Pt will perform progressive HEP with I including ROM, postural, strengthening, flexibility, balance and relaxation exercises to improve range, pain and function by 01/08/21. LTG Duration 8 weeks 3 Snf Goal (LTG) Pt will present with improved left shoulder flexion and abduction strength to at least 4/5 in available ROM to improve functional strength by 01/08/21. LTG Duration 8 weeks 2 Snf Goal (LTG) Pt will present with improved left shoulder AROM to 150 deg flexion and 130 deg abduction to improve functional use of arm by 01/08/21. LTG Duration 8 weeks 1 Snf Goal (LTG) Pt will report an 85% improvement in left shoulder pain to improve quality of life by 01/08/21. LTG Duration 8 weeks Assessment Summary Assessment pt shows very good progress so far with improved shoulder abd and ER. I also noticed his crepitus is significantly less than last week. This session focused mostly on manual therapy and added shoulder ER stretch. Physical Therapy Plan Frequency and Duration Frequency of Treatment 2x/Week Duration of Treatment 8 weeks Plan of Care Start Date 11/07/20 Plan of Care End Date 01/08/21 Therapeutic Interventions Therapeutic Interventions Balance Training,Canalithic Repositioning,Coordination Training,Gait Training,Home Exercise Program,Joint Mobilizations,Manual Therapy, Neuromuscular Re-education, Patient/Caregiver Education, Self-Care/Home Management, Sensory Integration,Soft Tissue Mobilization,Taping, Therapeutic Activities, Therapeutic Exercises Modalities Cold Pack/Ice Massage,Hot Packs Other Referrals/Consults Referrals/Consults Recommended Ortho consult, left shoulder MRI Next Visit Focus/Plan Next Note Type Treatment Note Next Visit Plan [place] Protocol, progress pect stretch, thoracic mobility and shoulder strengthening lying vertically over pool noodle or progress as secondary PT, Colton, feels appropriate (he will see pt next two visits)
--- NOTE | 2020-12-03 11:17 | PT.OTN ---
Current Diagnoses Pain in left shoulder (12/03/20) Physical Therapy Treatment Note PT-OP-A Visit Information Start: 11/03/20 15:13 Freq: Status: Active Protocol: Document 12/03/20 10:33 HH (Rec: 12/03/20 11:17 HH [id number]) Out-Patient Physical Therapy Visit Information Visit Information Visit Type Treatment Note Visit Note Premera BC MCR 11/24 before KX modifier Visit Start Time 10:35 Visit Stop Time 11:15 Total Visit Minutes 40 Visit Number 7 PT-OP-B Current Condition Start: 11/03/20 15:13 Freq: Status: Active Protocol: Document 11/07/20 13:45 MB (Rec: 11/07/20 14:02 MB [id number]) Current Condition History of Current Condition Onset Date 1 year, history of injury 40 years ago Current Complaints Pain and decreased ROM in left shoulder History of Current Condition Pt reports pain raising his left arm to the side. He hears snapping. He has been inactive through [employer]. He has been working remotely. He was previously very active and hiking. 40 years ago, he was waving his left arm to say goodbye when he slid down the icy steps and hurt the arm. It was and he went to the ED and they reset it. He did not have any PT after that. He had a lot of falling skiing but never had real pain. He is right-handed. If he sleeps with his arm under the pillow, it really hurts. He denies numbness and tingling in his left arm. He has been renovating a rental house and he had to use his arms more to lift. Putting a t-shirt on overhead is difficult and painful. Pt reports 4/10 left shoulder pain with AROM, mostly with abduction. Pt had a [place] and angioplasty and stent in 2000. He had cardiopulmonary rehab at that time. Prior Treatments and Tests Left shoulder x-ray on 10/17/20 was negative for acute findings. It did reveal OA changes, osteophytosis and joint space narrowing, mild AC degenerative changes. Treatment Goals Patient/Caregiver Goals Increase ROM and decrease pain PT-OP-C Subjective Start: 11/03/20 15:13 Freq: Status: Active Protocol: Document 12/03/20 10:33 HH (Rec: 12/03/20 11:17 HH [id number]) OP-PT Subjective Patient Comments Patient Comments My shoulder continues to improve and same as my pain. Patient Reported Progress Improving PT-OP-J Posture/Palpation/Skin Start: 11/03/20 15:13 Freq: Status: Active Protocol: Document 11/07/20 13:45 MB (Rec: 11/07/20 16:27 MB [id number]) Posture Evaluation Comments Posture Comments Standing posture: increased thoracic kyphosis, Dowager's hump, decreased lumbar lordosis, left shoulder higher than the right, rounded shoulders, left iliac crest higher than the right and right foot externally rotated with possible functional leg length variance. Skin Assessment Other Assessments Skin Assessment Comments Palpation over left coracoid process is hard compared to right PT-OP-K Range of Motion Start: 11/03/20 15:13 Freq: Status: Active Protocol: Document 11/07/20 13:45 MB (Rec: 11/07/20 16:27 MB [id number]) Cervical Spine Range of Motion Cervical Spine Active Testing Position Standing Flexion 40 Extension 30 Rotation Left 50 Rotation Right 60 Shoulder Goniometric Range of Motion Shoulder Left Shoulder ROM WFL No Testing Position Standing Flexion 135 Extension 66 Abduction 92 Internal Rotation Behind Back (text) T11 Comments Supine PROM ER and IR with arm in 90/90: 60 deg, 25 deg Right Shoulder ROM WFL Yes Testing Position Standing Internal Rotation Behind Back (text) T10 PT-OP-M Strength Start: 11/03/20 15:13 Freq: Status: Active Protocol: Document 11/07/20 13:45 MB (Rec: 11/07/20 16:27 MB [id number]) Shoulder Strength Shoulder Manual Muscle Testing Left Comments Deferred MMT d/t painful and reduced AROM Right Flexion 5 Normal Abduction (C5) 5 Normal External Rotation 5 Normal Internal Rotation 5 Normal Elbow/Forearm Strength Elbow and Forearm Manual Muscle Testing Bilateral Flexion (C6) 5 Normal Extension (C7) 5 Normal Pronation 5 Normal Supination 5 Normal Wrist Strength Wrist Manual Muscle Testing Bilateral Flexion (C7) 5 Normal Extension (C6) 5 Normal PT-OP-Q Treatments Start: 11/03/20 15:13 Freq: Status: Active Protocol: Document 12/03/20 10:33 HH (Rec: 12/03/20 11:17 HH [id number]) Therapeutic Exercises Sitting Exercises overhead shirin Sitting Exercise Name flexion, abduction Side left Reps/Minutes 6 mins Comments pt able to reach close to full range but slowly Standing Exercises shoulder ER Standing Exercise Name for HEP Side left Resistance level 1 Reps/Minutes 2 mins Comments cues on preventing trunk rotation scap retraction Standing Exercise Name postural correction Side bilateral Equipment Used level 1 Comments for HEP Manual Therapy Treatment Soft Tissue Mobilization RTC Body Location teres minor and major Mobilization Type Myofascial Release,Sustained Pressure,Trigger Point Release Intensity/Depth Moderate Body Position Sidelying Comments significant tenderness noted with radiating pain to front of the shoulder pecs Mobilization Type Myofascial Release Intensity/Depth Moderate Body Position Supine Joint Mobilizations L GHJ Direction inferior, posterior and anterior Grade III Body Position Supine PT-OP-T Assessment and Plan Start: 11/03/20 15:13 Freq: Status: Active Protocol: Document 12/03/20 10:33 (Rec: 12/03/20 11:17 [id number]) Physical Therapy Assessment Goals 4 Floor Representative Goal (LTG) Pt will perform progressive HEP with I including ROM, postural, strengthening, flexibility, balance and relaxation exercises to improve range, pain and function by 01/08/21. LTG Duration 8 weeks 3 Custodial Goal (LTG) Pt will present with improved left shoulder flexion and abduction strength to at least 4/5 in available ROM to improve functional strength by 01/08/21. LTG Duration 8 weeks 2 Custodial Goal (LTG) Pt will present with improved left shoulder AROM to 150 deg flexion and 130 deg abduction to improve functional use of arm by 01/08/21. LTG Duration 8 weeks 1 Floor Representative Goal (LTG) Pt will report an 85% improvement in left shoulder pain to improve quality of life by 01/08/21. LTG Duration 8 weeks Assessment Summary Assessment pt's passive ER almost reaches up to 85-90 degrees with arm abducted at 90. Initiated strengthening ex today and pt kin them well with good mechanics. Pt will be gone for 2 weeks and will reassess her progress and HEP. Physical Therapy Plan Frequency and Duration Frequency of Treatment 2x/Week Duration of Treatment 8 weeks Plan of Care Start Date 11/07/20 Plan of Care End Date 01/08/21 Therapeutic Interventions Therapeutic Interventions Balance Training,Canalithic Repositioning,Coordination Training,Gait Training,Home Exercise Program,Joint Mobilizations,Manual Therapy, Neuromuscular Re-education, Patient/Caregiver Education, Self-Care/Home Management, Sensory Integration,Soft Tissue Mobilization,Taping, Therapeutic Activities, Therapeutic Exercises Modalities Cold Pack/Ice Massage,Hot Packs Other Referrals/Consults Referrals/Consults Recommended Ortho consult, left shoulder MRI Next Visit Focus/Plan Next Note Type Treatment Note Next Visit Plan [place] Protocol, progress pect stretch, thoracic mobility and shoulder strengthening lying vertically over pool noodle or progress as secondary PT, Colton, feels appropriate (he will see pt next two visits)
--- NOTE | 2021-01-13 16:05 | PT.OPPOC ---
Physical, Occupational & Speech Therapy At [facility] Current Diagnoses Pain in left shoulder (01/13/21) Visit Care Team Role Provider Type Gokul White MD Attending Provider Physician Family Provider Primary Care Provider Referring Provider Specialty: Family Practice Address: [address] [place] [address], [id number] Email: [email or web address] Plan Of Care PT-OP-T Assessment and Plan Start: 11/03/20 15:13 Freq: Status: Active Protocol: Document 01/13/21 13:50 HH (Rec: 01/13/21 14:35 HH [id number]) Physical Therapy Assessment Goals 4 High Tension Tester Goal (LTG) Pt will perform progressive HEP with I including ROM, postural, strengthening, flexibility, balance and relaxation exercises to improve range, pain and function by 01/08/21. LTG Duration 8 weeks 3 Mcfp Goal (LTG) 01/13/10 goal met Pt present with improved left shoulder flexion and abduction strength to at least 4/5 in available ROM to improve functional strength by 01/08/21. LTG Duration 8 weeks 2 Mcfp Goal (LTG) 01/13 goal met Pt presents with improved left shoulder AROM to 150 deg flexion and 130 deg abduction to improve functional use of arm by 01/08/21. LTG Duration 8 weeks 1 Mcfp Goal (LTG) 01/13 goal met Pt reports an 85% improvement in left shoulder pain to improve quality of life by 01/08/21. LTG Duration 8 weeks Assessment Summary Assessment pt last appt = 12/03 and he has been progressing really well with WNL AROM but slight discomfort at end range especially reaching behind his back. Modified his HEP to end range ROM and strengthening focused and he kin session well. Will continue 1 more month of rehab for continuous end range strengthening. Physical Therapy Plan Frequency and Duration Frequency of Treatment 1x/Week Duration of Treatment 6 weeks Plan of Care Start Date 01/13/21 Plan of Care End Date 02/27/21 Therapeutic Interventions Therapeutic Interventions Balance Training,Canalithic Repositioning,Coordination Training,Gait Training,Home Exercise Program,Joint Mobilizations,Manual Therapy, Neuromuscular Re-education, Patient/Caregiver Education, Self-Care/Home Management, Sensory Integration,Soft Tissue Mobilization,Taping, Therapeutic Activities, Therapeutic Exercises Modalities Cold Pack/Ice Massage,Hot Packs Next Visit Focus/Plan Next Note Type Treatment Note Next Visit Plan [place] Protocol, progress pect stretch, thoracic mobility and shoulder strengthening lying vertically over pool noodle or progress as secondary PT, Colton, feels appropriate (he will see pt next two visits) Plan of Care Dates Plan of Care Start Date 01/13/21 Plan of Care End Date 02/27/21 Electronically Signed by: Isabella Rangel, PT 01/13/21 1205 Please Sign and Return: I have reviewed this Plan of Care and certify that the skilled therapy services above are required to meet the patient?s needs. Physician Signature Date Printed Name and Credentials Clinical Instructor Signature Printed Name and Credentials
--- NOTE | 2021-01-13 16:06 | PT.OTN ---
Current Diagnoses Pain in left shoulder (01/13/21) Physical Therapy Treatment Note PT-OP-A Visit Information Start: 11/03/20 15:13 Freq: Status: Active Protocol: Document 01/13/21 13:50 HH (Rec: 01/13/21 14:35 HH [id number]) Out-Patient Physical Therapy Visit Information Visit Information Visit Type Progress Note Visit Note [facility] MCR 11/24 before KX modifier Visit Start Time 13:50 Visit Stop Time 14:30 Total Visit Minutes 40 Visit Number 8 PT-OP-B Current Condition Start: 11/03/20 15:13 Freq: Status: Active Protocol: Document 11/07/20 13:45 MB (Rec: 11/07/20 14:02 MB [id number]) Current Condition History of Current Condition Onset Date 1 year, history of injury 40 years ago Current Complaints Pain and decreased ROM in left shoulder History of Current Condition Pt reports pain raising his left arm to the side. He hears snapping. He has been inactive through [employer]. He has been working remotely. He was previously very active and hiking. 40 years ago, he was waving his left arm to say goodbye when he slid down the icy steps and hurt the arm. It was and he went to the ED and they reset it. He did not have any PT after that. He had a lot of falling skiing but never had real pain. He is right-handed. If he sleeps with his arm under the pillow, it really hurts. He denies numbness and tingling in his left arm. He has been renovating a rental house and he had to use his arms more to lift. Putting a t-shirt on overhead is difficult and painful. Pt reports 4/10 left shoulder pain with AROM, mostly with abduction. Pt had a MT and angioplasty and stent in 2000. He had cardiopulmonary rehab at that time. Prior Treatments and Tests Left shoulder x-ray on 10/17/20 was negative for acute findings. It did reveal OA changes, osteophytosis and joint space narrowing, mild AC degenerative changes. Treatment Goals Patient/Caregiver Goals Increase ROM and decrease pain PT-OP-C Subjective Start: 11/03/20 15:13 Freq: Status: Active Protocol: Document 01/13/21 13:50 HH (Rec: 01/13/21 14:35 [id number]) OP-PT Subjective Patient Comments Patient Comments My L shoulder has gotten a lot better with less crunching . Not painful but just discomfort. Im sleeping fine now. Patient Reported Progress Improving PT-OP-J Posture/Palpation/Skin Start: 11/03/20 15:13 Freq: Status: Active Protocol: Document 11/07/20 13:45 MB (Rec: 11/07/20 16:27 MB [id number]) Posture Evaluation Comments Posture Comments Standing posture: increased thoracic kyphosis, Dowager's hump, decreased lumbar lordosis, left shoulder higher than the right, rounded shoulders, left iliac crest higher than the right and right foot externally rotated with possible functional leg length variance. Skin Assessment Other Assessments Skin Assessment Comments Palpation over left coracoid process is hard compared to right PT-OP-K Range of Motion Start: 11/03/20 15:13 Freq: Status: Active Protocol: Document 01/13/21 13:50 HH (Rec: 01/13/21 14:35 [id number]) Shoulder Goniometric Range of Motion Shoulder Left Shoulder ROM WFL No Testing Position Standing Flexion 151 Extension 63 Abduction 151 Internal Rotation Behind Back (text) T8 Comments Supine PROM ER and IR with arm in 90/90: 72 deg, 75 deg PT-OP-M Strength Start: 11/03/20 15:13 Freq: Status: Active Protocol: Document 11/07/20 13:45 MB (Rec: 11/07/20 16:27 MB [id number]) Shoulder Strength Shoulder Manual Muscle Testing Left Comments Deferred MMT d/t painful and reduced AROM Right Flexion 5 Normal Abduction (C5) 5 Normal External Rotation 5 Normal Internal Rotation 5 Normal Elbow/Forearm Strength Elbow and Forearm Manual Muscle Testing Bilateral Flexion (C6) 5 Normal Extension (C7) 5 Normal Pronation 5 Normal Supination 5 Normal Wrist Strength Wrist Manual Muscle Testing Bilateral Flexion (C7) 5 Normal Extension (C6) 5 Normal PT-OP-Q Treatments Start: 11/03/20 15:13 Freq: Status: Active Protocol: Document 01/13/21 13:50 HH (Rec: 01/13/21 14:35 [id number]) Therapeutic Exercises Sitting Exercises overhead shirin Sitting Exercise Name flexion, abduction Side left Reps/Minutes 6 mins Comments pt able to reach close to full range but slowly Standing Exercises towel stretch behind back Standing Exercise Name to reach behind his back Side bilateral Reps/Minutes 5 x2 Comments for HEP wall slide Standing Exercise Name flexion and abduction Side bilateral Reps/Minutes 6 x2 Comments to end range , for HEP scap retraction Standing Exercise Name postural correction Side bilateral Equipment Used level 1 Comments for HEP Manual Therapy Treatment Soft Tissue Mobilization RTC Body Location teres minor and major Mobilization Type Myofascial Release,Sustained Pressure,Trigger Point Release Intensity/Depth Moderate Body Position Sidelying Comments reduced tenderness noted PT-OP-T Assessment and Plan Start: 11/03/20 15:13 Freq: Status: Active Protocol: Document 01/13/21 13:50 HH (Rec: 01/13/21 14:35 HH [id number]) Physical Therapy Assessment Goals 4 [employer] Goal (LTG) Pt will perform progressive HEP with I including ROM, postural, strengthening, flexibility, balance and relaxation exercises to improve range, pain and function by 01/08/21. LTG Duration 8 weeks 3 Assisted Goal (LTG) 01/13/10 goal met Pt present with improved left shoulder flexion and abduction strength to at least 4/5 in available ROM to improve functional strength by 01/08/21. LTG Duration 8 weeks 2 Assisted Goal (LTG) 01/13 goal met Pt presents with improved left shoulder AROM to 150 deg flexion and 130 deg abduction to improve functional use of arm by 01/08/21. LTG Duration 8 weeks 1 [employer] Goal (LTG) 01/13 goal met Pt reports an 85% improvement in left shoulder pain to improve quality of life by 01/08/21. LTG Duration 8 weeks Assessment Summary Assessment pt last appt = 12/03 and he has been progressing really well with WNL AROM but slight discomfort at end range especially reaching behind his back. Modified his HEP to end range ROM and strengthening focused and he kin session well. Will continue 1 more month of rehab for continuous end range strengthening. Physical Therapy Plan Frequency and Duration Frequency of Treatment 1x/Week Duration of Treatment 6 weeks Plan of Care Start Date 01/13/21 Plan of Care End Date 02/27/21 Therapeutic Interventions Therapeutic Interventions Balance Training,Canalithic Repositioning,Coordination Training,Gait Training,Home Exercise Program,Joint Mobilizations,Manual Therapy, Neuromuscular Re-education, Patient/Caregiver Education, Self-Care/Home Management, Sensory Integration,Soft Tissue Mobilization,Taping, Therapeutic Activities, Therapeutic Exercises Modalities Cold Pack/Ice Massage,Hot Packs Next Visit Focus/Plan Next Note Type Treatment Note Next Visit Plan [place] Protocol, progress pect stretch, thoracic mobility and shoulder strengthening lying vertically over pool noodle or progress as secondary PT, [place], feels appropriate (he will see pt next two visits)
--- NOTE | 2021-01-27 11:16 | PT.OTN ---
Current Diagnoses Pain in left shoulder (01/27/21) Physical Therapy Treatment Note PT-OP-A Visit Information Start: 11/03/20 15:13 Freq: Status: Active Protocol: Document 01/27/21 10:32 HH (Rec: 01/27/21 11:15 HH [id number]) Out-Patient Physical Therapy Visit Information Visit Information Visit Type Discharge Summary Visit Note [facility] BC MCR 01/25 before KX modifier Visit Start Time 10:35 Visit Stop Time 11:15 Total Visit Minutes 40 Visit Number 9 PT-OP-B Current Condition Start: 11/03/20 15:13 Freq: Status: Active Protocol: Document 11/07/20 13:45 MB (Rec: 11/07/20 14:02 MB [id number]) Current Condition History of Current Condition Onset Date 1 year, history of injury 40 years ago Current Complaints Pain and decreased ROM in left shoulder History of Current Condition Pt reports pain raising his left arm to the side. He hears snapping. He has been inactive through [employer]. He has been working remotely. He was previously very active and hiking. 40 years ago, he was waving his left arm to say goodbye when he slid down the icy steps and hurt the arm. It was and he went to the ED and they reset it. He did not have any PT after that. He had a lot of falling skiing but never had real pain. He is right-handed. If he sleeps with his arm under the pillow, it really hurts. He denies numbness and tingling in his left arm. He has been renovating a rental house and he had to use his arms more to lift. Putting a t-shirt on overhead is difficult and painful. Pt reports 4/10 left shoulder pain with AROM, mostly with abduction. Pt had a GA and angioplasty and stent in 2000. He had cardiopulmonary rehab at that time. Prior Treatments and Tests Left shoulder x-ray on 10/17/20 was negative for acute findings. It did reveal OA changes, osteophytosis and joint space narrowing, mild AC degenerative changes. Treatment Goals Patient/Caregiver Goals Increase ROM and decrease pain PT-OP-C Subjective Start: 11/03/20 15:13 Freq: Status: Active Protocol: Document 01/27/21 10:32 HH (Rec: 01/27/21 11:15 HH [id number]) OP-PT Subjective Patient Comments Patient Comments My shoulder is doing pretty fine. I feel like I can be DC pretty soon. Patient Reported Progress Improving PT-OP-J Posture/Palpation/Skin Start: 11/03/20 15:13 Freq: Status: Active Protocol: Document 11/07/20 13:45 MB (Rec: 11/07/20 16:27 MB [id number]) Posture Evaluation Comments Posture Comments Standing posture: increased thoracic kyphosis, Dowager's hump, decreased lumbar lordosis, left shoulder higher than the right, rounded shoulders, left iliac crest higher than the right and right foot externally rotated with possible functional leg length variance. Skin Assessment Other Assessments Skin Assessment Comments Palpation over left coracoid process is hard compared to right PT-OP-K Range of Motion Start: 11/03/20 15:13 Freq: Status: Active Protocol: Document 01/13/21 13:50 HH (Rec: 01/13/21 14:35 HH [id number]) Shoulder Goniometric Range of Motion Shoulder Left Shoulder ROM WFL No Testing Position Standing Flexion 151 Extension 63 Abduction 151 Internal Rotation Behind Back (text) T8 Comments Supine PROM ER and IR with arm in 90/90: 72 deg, 75 deg PT-OP-M Strength Start: 11/03/20 15:13 Freq: Status: Active Protocol: Document 11/07/20 13:45 MB (Rec: 11/07/20 16:27 MB [id number]) Shoulder Strength Shoulder Manual Muscle Testing Left Comments Deferred MMT d/t painful and reduced AROM Right Flexion 5 Normal Abduction (C5) 5 Normal External Rotation 5 Normal Internal Rotation 5 Normal Elbow/Forearm Strength Elbow and Forearm Manual Muscle Testing Bilateral Flexion (C6) 5 Normal Extension (C7) 5 Normal Pronation 5 Normal Supination 5 Normal Wrist Strength Wrist Manual Muscle Testing Bilateral Flexion (C7) 5 Normal Extension (C6) 5 Normal PT-OP-Q Treatments Start: 11/03/20 15:13 Freq: Status: Active Protocol: Document 01/27/21 10:32 HH (Rec: 01/27/21 11:15 HH [id number]) Cardio Equipment Upper Body Ergometer (UBE) Duration (Minutes) 5 Other 1' forward and 1' backwards Therapeutic Exercises Sitting Exercises overhead shirin Sitting Exercise Name flexion, abduction Side left Reps/Minutes 2 mins Comments pt able to reach close to full range but slowly Standing Exercises shoulder Y,T Standing Exercise Name bend over position Reps/Minutes 8 x2 Comments for HEP, crepitus noted towel stretch behind back Standing Exercise Name to reach behind his back Side bilateral Reps/Minutes 5 x2 Comments for HEP wall slide Standing Exercise Name flexion and abduction Side bilateral Reps/Minutes 6 x2 Comments to end range , for HEP Manual Therapy Treatment Joint Mobilizations L GHJ Direction inferior, posterior and anterior Grade III Body Position Supine PT-OP-T Assessment and Plan Start: 11/03/20 15:13 Freq: Status: Active Protocol: Document 01/27/21 10:32 (Rec: 01/27/21 11:15 [id number]) Physical Therapy Assessment Goals 4 [employer] Goal (LTG) Pt will perform progressive HEP with I including ROM, postural, strengthening, flexibility, balance and relaxation exercises to improve range, pain and function by 01/08/21. LTG Duration 8 weeks 3 [employer] Goal (LTG) 01/13/10 goal met Pt present with improved left shoulder flexion and abduction strength to at least 4/5 in available ROM to improve functional strength by 01/08/21. LTG Duration 8 weeks 2 [employer] Goal (LTG) 01/13 goal met Pt presents with improved left shoulder AROM to 150 deg flexion and 130 deg abduction to improve functional use of arm by 01/08/21. LTG Duration 8 weeks 1 [employer] Goal (LTG) 01/13 goal met Pt reports an 85% improvement in left shoulder pain to improve quality of life by 01/08/21. LTG Duration 8 weeks Assessment Summary Assessment pt is consistently getting better since IE. He is pleased with his progress but would like to continue R shoulder strengthening as tolerated. Will schedule pt one more visit at the end of february for f/u. Added bend over shoulder Y,T today. Physical Therapy Plan Frequency and Duration Frequency of Treatment 1x/Week Duration of Treatment 6 weeks Plan of Care Start Date 01/13/21 Plan of Care End Date 02/27/21 Therapeutic Interventions Therapeutic Interventions Balance Training,Canalithic Repositioning,Coordination Training,Gait Training,Home Exercise Program,Joint Mobilizations,Manual Therapy, Neuromuscular Re-education, Patient/Caregiver Education, Self-Care/Home Management, Sensory Integration,Soft Tissue Mobilization,Taping, Therapeutic Activities, Therapeutic Exercises Modalities Cold Pack/Ice Massage,Hot Packs Next Visit Focus/Plan Next Note Type Treatment Note Next Visit Plan [place] Protocol, progress pect stretch, thoracic mobility and shoulder strengthening lying vertically over pool noodle or progress as secondary PT, [place], feels appropriate (he will see pt next two visits)
--- NOTE | 2021-03-03 13:20 | PT.OPDS ---
Current Diagnoses Pain in left shoulder (01/27/21) Visit Care Team Role Provider Type Gokul White MD Attending Provider Physician Family Provider Primary Care Provider Referring Provider Specialty: Family Practice Address: [address] [place] [address], [facility] Email: [email or web address] Visit Number Visit Number 9 Discharge Summary PT-OP-T Assessment and Plan Start: 11/03/20 15:13 Freq: Status: Active Protocol: Document 03/03/21 13:19 (Rec: 03/03/21 13:20 [id number]) Physical Therapy Plan Discharge Physical Therapy Discharge Reasons No Longer Attending PT Discharge Comments pt has not returned since january. Per EMR, pt has shown significant improvements since evaluation. DC from PT today.
== END 2021-03-19 12:53 ==
LOC: PHYS 10:30
PROVIDERS: Family Provider Family Medicine; PCP Family Medicine; Referring Provider Family Medicine; Visit Provider Family Medicine
DX: M25.512 Pain in left shoulder (principal)
CPT/HCPCS: 97110; 97140; 97161; 97535

== ENCOUNTER → 2022-04-18 15:26 | Outpatient (CLI) | payer MEDICARE, SELFPAY | PROVIDERS: Family Provider Family Medicine; PCP Family Medicine; Visit Provider Student in an Organized Health Care Education/Training Program | DX: R21 Rash and other nonspecific skin eruption (principal) | CPT/HCPCS: 87070; 87205 ==

== ENCOUNTER → 2022-06-02 07:20 | Outpatient (CLI) | payer MEDICARE, SELFPAY ==
[2022-06-02 07:48] LABS: Add Manual Diff / Slide Review NO; Basophils Absolute Auto 100 /uL (0-100); Basophils Percent Auto 0.9 % (0-2); Eosinophils Absolute Auto 300 /uL (0-450); Hematocrit 42.9 % (41-53); Hemoglobin 14.7 g/dL (13.5-17.5); Lymphocytes Absolute Auto 1700 /uL (1100-4500); Lymphocytes Percent Auto 25.3 % (25-40); Mean Corpuscular HGB Conc 34.2 % (30-36); Mean Corpuscular Hemoglobin 29.6 PG (26-34); Mean Corpuscular Volume 86.4 fL (80-100); Monocytes Absolute Auto 700 /uL (0-900); Monocytes Percent Auto 9.8 % (3-14); Neutrophils Absolute Auto 4100 /uL (1500-7000); Platelet Count 234 X10^3/uL (150-400); Red Blood Cell Count 4.97 X10^6/uL (4.5-5.9); Red Cell Distribution Width 13.6 % (11.6-14.8); White Blood Cell Count 6.8 X10^3/uL (4.5-11.0)
[2022-06-02 08:30] LABS: Alanine Aminotransferase 18 IU/L (<50); Albumin Globulin Ratio 1.3 (1.0-2.8); Alkaline Phosphatase 60 U/L (38-126); Aspartate Aminotransferase 21 IU/L (17-59); BUN Creatinine Ratio 14.7 (6-22); Bilirubin Total 0.7 mg/dL (0.2-1.3); Blood Urea Nitrogen 16 mg/dL (9-20); Calcium 8.3 mg/dL (8.4-10.2); Carbon Dioxide 26 mmol/L (22-32); Chloride 104 mmol/L (98-107); Cholesterol 203 mg/dL (140-199); Estimated Glomerular Filt Rate > 60 mL/min (>60); Globulin 3.1 g/dL (1.7-4.1); Glucose 105 mg/dL (80-110); HDL Cholesterol 36 mg/dL (40-60); HEMOLYSIS < 15 (0-50); LDL Cholesterol Calculated 145 mg/dL (<100); Potassium 4.1 mmol/L (3.4-5.1); Sodium 138 mmol/L (137-145); Total Protein 7.1 g/dL (6.3-8.2); Triglycerides 109 mg/dL (35-150)
[2022-06-02 08:54] LABS: Prostate Specific Antigen Scrn 3.12 ng/mL (0.1-4.0)
[2022-06-02 09:00] LABS: TSH w/ Reflex to FT4 3.58 uIU/mL (0.47-4.68)
[2022-06-02 15:36] LABS: Creatinine Urine Random 76.1 mg/dL; Microalbumi Creatinin Ratio Ur 13.1 ug/mg CR (<30)
[2022-06-08 13:43] LABS: Fecal Immunochemical Test Negative (Negative)
== END ==
PROVIDERS: Family Provider Family Medicine; PCP Family Medicine; Referring Provider Family Medicine; Visit Provider Family Medicine
DX: E78.2 Mixed hyperlipidemia (principal); Z12.5 Encounter for screening for malignant neoplasm of prostate; I10 Essential (primary) hypertension; I25.10 Atherosclerotic heart disease of native coronary artery without angina pectoris; L30.9 Dermatitis, unspecified
CPT/HCPCS: 36415; 80053; 80061; 82043; 82274; 82570; 84443; 85025; G0103

== ENCOUNTER → 2022-06-23 07:38 | Outpatient (CLI) | payer MEDICARE, SELFPAY ==
[2022-06-23 10:00] LABS: Cholesterol 174 mg/dL (140-199); HDL Cholesterol 47 mg/dL (40-60); LDL Cholesterol Calculated 114 mg/dL (<100); Triglycerides 66 mg/dL (35-150)
== END ==
PROVIDERS: Family Provider Family Medicine; PCP Family Medicine; Referring Provider Family Medicine; Visit Provider Family Medicine
DX: I10 Essential (primary) hypertension (principal); E78.5 Hyperlipidemia, unspecified; I25.10 Atherosclerotic heart disease of native coronary artery without angina pectoris
CPT/HCPCS: 36415; 80061

== ENCOUNTER → 2023-06-07 08:43 | Outpatient (CLI) | payer MEDICARE, SELFPAY ==
[2023-06-07 09:47] LABS: Add Manual Diff / Slide Review NO; Basophils Absolute Auto 0 /uL (0-100); Basophils Percent Auto 0.8 % (0-2); Eosinophils Absolute Auto 300 /uL (0-450); Eosinophils Percent Auto 5.7 % (2-4); Hemoglobin 15.2 g/dL (13.5-17.5); Lymphocytes Absolute Auto 1700 /uL (1100-4500); Lymphocytes Percent Auto 27.6 % (25-40); Mean Corpuscular HGB Conc 33.8 % (30-36); Mean Corpuscular Hemoglobin 29.4 PG (26-34); Monocytes Absolute Auto 600 /uL (0-900); Monocytes Percent Auto 9.3 % (3-14); Neutrophils Absolute Auto 3500 /uL (1500-7000); Neutrophils Percent Auto 56.6 % (50-75); Platelet Count 181 X10^3/uL (150-400); Red Blood Cell Count 5.18 X10^6/uL (4.5-5.9); Red Cell Distribution Width 13.5 % (11.6-14.8); White Blood Cell Count 6.1 X10^3/uL (4.5-11.0)
[2023-06-07 10:09] LABS: Creatinine Urine Random 126.8 mg/dL
[2023-06-07 10:12] LABS: Alanine Aminotransferase 22 IU/L (<50); Albumin 4.1 g/dL (3.5-5.0); Albumin Globulin Ratio 1.4 (1.0-2.8); Alkaline Phosphatase 56 U/L (38-126); Aspartate Aminotransferase 25 IU/L (17-59); BUN Creatinine Ratio 17.2 (6-22); Bilirubin Total 0.5 mg/dL (0.2-1.3); Blood Urea Nitrogen 20 mg/dL (9-20); Calcium 9.2 mg/dL (8.4-10.2); Carbon Dioxide 26 mmol/L (22-32); Chloride 106 mmol/L (98-107); Cholesterol 245 mg/dL (140-199); Estimated Glomerular Filt Rate > 60 mL/min (>60); Globulin 2.9 g/dL (1.7-4.1); Glucose 100 mg/dL (80-110); HDL Cholesterol 42 mg/dL (40-60); HEMOLYSIS < 15 (0-50); LDL Cholesterol Calculated 183 mg/dL (<100); Potassium 4.4 mmol/L (3.4-5.1); Sodium 138 mmol/L (137-145); Triglycerides 101 mg/dL (35-150)
[2023-06-07 10:28] LABS: Free T4, Direct Thyroxine 0.84 ng/dL (0.78-2.19)
[2023-06-07 10:39] LABS: Prostate Specific Antigen 1.74 ng/mL (0.10-4.00)
[2023-06-07 10:42] LABS: Thyroid Stimulating Hormone 4.65 uIU/mL (0.47-4.68)
== END ==
PROVIDERS: Family Provider Family Medicine; PCP Family Medicine; Referring Provider Family Medicine; Visit Provider Family Medicine
DX: K21.9 Gastro-esophageal reflux disease without esophagitis (principal); I25.10 Atherosclerotic heart disease of native coronary artery without angina pectoris; I10 Essential (primary) hypertension; I50.9 Heart failure, unspecified; E78.2 Mixed hyperlipidemia; R79.89 Other specified abnormal findings of blood chemistry; E66.3 Overweight; E11.9 Type 2 diabetes mellitus without complications
CPT/HCPCS: 36415; 80053; 80061; 82570; 84153; 84439; 84443; 85025

== ENCOUNTER → 2023-09-15 07:26 | Outpatient (CLI) | payer MEDICARE, SELFPAY ==
[2023-09-15 09:04] LABS: Appearance Urine UA CLEAR; Bilirubin Urine UA NEGATIVE (NEGATIVE); Color Urine UA YELLOW; Glucose Urine UA NEGATIVE (Negative); Ketones Urine UA NEGATIVE (NEGATIVE); Leukocyte Esterase Urine UA NEGATIVE (NEGATIVE); Nitrite Urine UA NEGATIVE (Negative); Occult Blood Urine UA NEGATIVE (Negative); Protein Urine UA NEGATIVE (Negative); Specific Gravity Urine UA >=1.030 (1.000-1.035); Urobilinogen Urine UA 0.2 E.U./dL (0.2); pH Urine UA 5.5 (4.5-8.0)
[2023-09-15 09:14] LABS: Bacteria Urine None Seen; Culture Indicated Urine Cult Not Indicated; RBC Urine None Seen (0-5/HPF); Squamous Epithelial Cell Urine 0-1 /HPF (0-5/HPF); Urine Volume 10mL (spun); WBC Urine None Seen (0-5/HPF)
[2023-09-15 09:21] LABS: Alanine Aminotransferase 47 IU/L (<50); Albumin 4.3 g/dL (3.5-5.0); Alkaline Phosphatase 53 U/L (38-126); Aspartate Aminotransferase 46 IU/L (17-59); BUN Creatinine Ratio 22.5 (6-22); Bilirubin Total 0.5 mg/dL (0.2-1.3); Blood Urea Nitrogen 31 mg/dL (9-20); Calcium 9.3 mg/dL (8.4-10.2); Carbon Dioxide 26 mmol/L (22-32); Chloride 105 mmol/L (98-107); Cholesterol 136 mg/dL (140-199); Estimated Glomerular Filt Rate 54 mL/min (>60); Globulin 2.2 g/dL (1.7-4.1); Glucose 108 mg/dL (80-110); HDL Cholesterol 32 mg/dL (40-60); HEMOLYSIS < 15 (0-50); LDL Cholesterol Calculated 69 mg/dL (<100); Sodium 135 mmol/L (137-145); Total Protein 6.5 g/dL (6.3-8.2); Triglycerides 177 mg/dL (35-150)
[2023-09-15 09:30] LABS: Creatinine Urine Random 154.8 mg/dL
[2023-09-15 09:35] LABS: Microalbumin Urine Random < 0.6 mg/dL (0-1.6)
[2023-09-16 08:10] LABS: Apolipoprotein B 74 mg/dL (<90)
== END ==
LOC: LAB 07:27
PROVIDERS: Family Provider Family Medicine; PCP Family Medicine; Referring Provider Family Medicine; Visit Provider Family Medicine
DX: I11.0 Hypertensive heart disease with heart failure (principal); I50.9 Heart failure, unspecified; E78.5 Hyperlipidemia, unspecified; I25.10 Atherosclerotic heart disease of native coronary artery without angina pectoris; E78.2 Mixed hyperlipidemia; K21.9 Gastro-esophageal reflux disease without esophagitis; R79.89 Other specified abnormal findings of blood chemistry; E66.3 Overweight
CPT/HCPCS: 36415; 80053; 80061; 81001; 82043; 82172; 82570; 83695

== ENCOUNTER → 2025-03-05 08:34 | Outpatient (CLI) | payer OTHER, SELFPAY ==
[2025-03-05 09:26] LABS: Add Manual Diff / Slide Review NO; Hematocrit 40.0 % (41-53); Hemoglobin 13.7 g/dL (13.5-17.5); Lymphocytes Absolute Auto 1600 /uL (1100-4500); Mean Corpuscular HGB Conc 34.2 % (30-36); Mean Corpuscular Hemoglobin 29.7 PG (26-34); Mean Corpuscular Volume 86.8 fL (80-100); Platelet Count 162 X10^3/uL (150-400)
[2025-03-05 09:42] LABS: Hemoglobin A1C% w Est Avg Glu 5.6 % (4.0-6.0)
[2025-03-05 09:49] LABS: Alanine Aminotransferase 23 IU/L (<50); Albumin 4.3 g/dL (3.5-5.0); Albumin Globulin Ratio 1.5 (1.0-2.8); Alkaline Phosphatase 49 U/L (38-126); Blood Urea Nitrogen 28 mg/dL (9-20); Calcium 8.7 mg/dL (8.4-10.2); Carbon Dioxide 26 mmol/L (22-32); Chloride 107 mmol/L (98-107); Cholesterol 151 mg/dL (140-199); Estimated Glomerular Filt Rate > 60 mL/min (>60); Globulin 2.9 g/dL (1.7-4.1); Glucose 118 mg/dL (70-99); HDL Cholesterol 33 mg/dL (40-60); HEMOLYSIS 45 (0-50); Potassium 3.8 mmol/L (3.4-5.1); Sodium 138 mmol/L (137-145); Total Protein 7.2 g/dL (6.3-8.2); Triglycerides 276 mg/dL (35-150)
[2025-03-05 10:19] LABS: TSH w/ Reflex to FT4 3.69 uIU/mL (0.47-4.68)
== END ==
PROVIDERS: PCP Family Medicine; Referring Provider Family Medicine; Visit Provider Family Medicine
DX: I10 Essential (primary) hypertension (principal); R79.89 Other specified abnormal findings of blood chemistry; E78.2 Mixed hyperlipidemia; I25.10 Atherosclerotic heart disease of native coronary artery without angina pectoris
CPT/HCPCS: 36415; 80053; 80061; 82172; 83036; 84443; 85025

== ENCOUNTER → 2025-03-14 09:56 | Outpatient (CLI) | payer OTHER, SELFPAY | PROVIDERS: PCP Family Medicine; Referring Provider Family Medicine; Visit Provider Family Medicine | DX: Z12.5 Encounter for screening for malignant neoplasm of prostate (principal); E78.2 Mixed hyperlipidemia; I25.10 Atherosclerotic heart disease of native coronary artery without angina pectoris; I12.9 Hypertensive chronic kidney disease with stage 1 through stage 4 chronic kidney disease, or unspecified chronic kidney disease; N18.31 Chronic kidney disease, stage 3a | CPT/HCPCS: 36415; 82043; 82570; G0103 ==